=== PATIENT | female | born 1930 | race Caucasian/White ===

== ENCOUNTER → 2020-04-19 | Emergency (ER) | payer MEDICARE ==
[~2020-04-19] VITALS: Ht 157.5 cm; Wt 84.8 kg
[~2020-04-19] MED LIST: ACARBOSE25 MG PO; AMARYL4 MG PO; COUMADIN5 MG PO; COZAAR50 MG PO; IRON18 MG PO; KEFLEX250 MG PO; METFORMIN HCL500 M1 PO; SIMVASTATIN20 MG PO; VITAMIN D400 UNIT PO
--- OUTSIDE RECORDS SUMMARY | ~2020-04-19 | XMS | Encounter Summary ---
Demographics + + + | Address | [address] | | | [place] [address] | + + + | Home Phone | | + + + | Preferred Language | Unknown | + + + | Marital Status | | + + + | Judaism Affiliation | Unknown | + + + | Race | White | + + + | Ethnic Group | Not or | + + + Author + + + | Author | [facility] | | | and [place] | + + + | Organization | [facility] | | | and [place] | + + + | Address | Unknown | + + + | Phone | Unavailable | + + + Support + + +---------+ + | Name | Relationship | Address | Phone | + + +---------+ + | Siobhan Ramírez | ECON | Unknown | | + + +---------+ + | Nathanael Mckeon | ECON | Unknown | | + + +---------+ + Care Team Providers + +------+ + | Care Auto Overhauler Name | Role | Phone | + +------+ + | Andrew Carballo MD | PCP | | + +------+ + Encounter Details +--------+ + + + + | Date | Type | Department | Care Team | Description | +--------+ + + + + | 06/08/ | Abstract | [facility] | Vicente Martín Weldon, | | | 2014 | | PHYSIATRY [address] | MD [address] | | | | | [address] | [place], [place] | | | | | [place], [place] | [address] | | | | | [address] | | | | | | [phone] | | | +--------+ + + + + Social History + +-------+ +--------+------+ | Tobacco Use | Types | Packs/Day | Years | Date | | | | | Used | | + +-------+ +--------+------+ | Never Smoker | | | | | + +-------+ +--------+------+ + +---+---+---+ | Smokeless Tobacco: | | | | | Never Used | | | | + +---+---+---+ + + +---------+ + | Alcohol Use | Drinks/Week | oz/Week | Comments | + + +---------+ + | Yes | 0 Standard drinks | 0.0 | Social | | | or equivalent | | | + + +---------+ + + + + | Sex Assigned at | Date Recorded | | | | + + + | Not on file | | + + + documented as of this encounter Plan of Treatment Not on filedocumented as of this encounter Visit Diagnoses Not on filedocumented in this encounter"
--- OUTSIDE RECORDS SUMMARY | ~2020-04-19 | XMS | Clinical Summary ---
Demographics + + + | Address | [address] | | | [place] [address] | + + + | Home Phone | | + + + | Preferred Language | Unknown | + + + | Marital Status | | + + + | Quaker Affiliation | Unknown | + + + | Race | White | + + + | Ethnic Group | Not or | + + + Author + + + | Author | [facility] | | | and [place] | + + + | Organization | [facility] | | | and [...] Team Providers + +------+ + | Care Supply Chain Generalist Name | Role | Phone | + +------+ + | Surya Hayden MD | PCP | | + +------+ + Allergies No Known Allergies Medications + + + +---------+------+------+-------+ | Medication | Sig | Dispensed | Refills | Star | End | Statu | | | | | | t | Date | s | | | | | | Date | | | + + + +---------+------+------+-------+ | glimepiride | Take 4 mg by mouth 2 | | 0 | | | Activ | | (AMARYL) 4 mg tablet | times daily. | | | | | e | + + + +---------+------+------+-------+ | lisinopril | Take 10 mg by mouth | | 0 | | | Activ | | (PRINIVIL, ZESTRIL) | Daily. | | | | | e | | 10 mg tablet | | | | | | | + + + +---------+------+------+-------+ | | Take 1 tablet by | | 0 | | | Activ | | ezetimibe-simvastati | mouth nightly. | | | | | e | | n (VYTORIN) 10-20 MG | | | | | | | | per tablet | | | | | | | + + + +---------+------+------+-------+ | acarbose (PRECOSE) | Take 25 mg by mouth | | 0 | | | Activ | | 25 MG tablet | 3 times daily (with | | | | | e | | | meals). | | | | | | + + + +---------+------+------+-------+ | Ferrous Gluconate | Take by mouth | | 0 | | | Activ | | (IRON) 240 (27 FE) | Daily. | | | | | e | | MG TABS | | | | | | | + + + +---------+------+------+-------+ | Cholecalciferol | Take 1,000 Units by | | 0 | | | Activ | | (VITAMIN D-3) 1000 | mouth Daily. | | | | | e | | units CAPS | | | | | | | + + + +---------+------+------+-------+ | | Take by mouth | | 0 | | | Activ | | O-Kpzswsdhokeq-K3-B1 | Daily. | | | | | e | | 2 (METANX PO) | | | | | | | + + + +---------+------+------+-------+ | aspirin 81 MG | Take 81 mg by mouth | | 0 | | | Activ | | tablet | Daily. | | | | | e | + + + +---------+------+------+-------+ Active Problems No known active problems Family History Patient is adopted + + +------+ + | Medical History | Relation | Name | Comments | + + +------+ + | Arthritis | Son | | | + + +------+ + | Cancer | Son | | | + + +------+ + | Heart disease | Son | | | + + +------+ + | Other (see comment) | Son | | JOINT REPLACEMENT | + + +------+ + + +------+--------+ + | Relation | Name | Status | Comments | + +------+--------+ + | Child | | Alive | | + +------+--------+ + | Child | | Alive | | + +------+--------+ + | Child | | Alive | | + +------+--------+ + | Son | | Alive | | + +------+--------+ + | Son | | | | + +------+--------+ + Social History + +-------+ +--------+------+ | [...] on file | | + + + Last Filed Vital Signs + + + + + | Vital Sign | Reading | Time Taken | Comments | + + + + + | Blood Pressure | 99/64 | 06/22/2015 3:56 PM | | | | | PST | | + + + + + | Pulse | 74 | 06/22/2015 3:56 PM | | | | | PST | | + + + + + | Temperature | - | - | | + + + + + | Respiratory Rate | 18 | 06/22/2015 3:56 PM | | | | | PST | | + + + + + | Oxygen Saturation | - | - | | + + + + + | Inhaled Oxygen | - | - | | | Concentration | | | | + + + + + | Weight | 81.6 kg (180 lb) | 06/22/2015 3:56 PM | | | | | PST | | + + + + + | Height | 159.4 cm (5' 2.75") | 06/22/2015 3:56 PM | | | | | PST | | + + + + + | Body Mass Index | 32.14 | 06/22/2015 3:56 PM | | | | | PST | | + + + + + Plan of Treatment + + +-------+ + | Health Maintenance | Due Date | Last | Comments | | | | Done | | + + +-------+ + | Vaccine: | | | | | Dtap/Tdap/Td (1 - | 9 | | | | Tdap) | | | | + + +-------+ + | Vaccine: Zoster (1 | | | | | of 2) | 0 | | | + + +-------+ + | Vaccine: | | | | | Pneumococcal 65+ (1 | 5 | | | | of 1 - PPSV23) | | | | + + +-------+ + | Vaccine: Influenza | | | | | (#1) | 0 | | | + + +-------+ + Results Not on filefrom Last 3 Months Insurance + +--------+ +--------+ +---------+--------+ | Payer | Benefi | Subscriber | Effect | Phone | Address | Type | | | t Plan | ID | dilcia | | | | | | / | | Dates | | | | | | Group | | | | | | + +--------+ +--------+ +---------+--------+ | MEDICARE | MEDICA | [id number] | | [phone] | | Medica | | | RE | | 995-Pr | 5 | | re | | | PART A | | esent | | | | | | AND B | | | | | | + +--------+ +--------+ +---------+--------+ | AARP | AARP | [id number] | | [phone] | | Indemn | | | MDCR | | 999-Pr | 0 | | ity | | | SUPPL | | esent | | | | + +--------+ +--------+ +---------+--------+ + +--------+ +--------+ + + | Guarantor Name | Accoun | Relation to | Date | Phone | Billing Address | | | t Type | Patient | of | | | | | | | | | | + +--------+ +--------+ + + | Josephine Mckeon | Person | Self [birth year] | [address] | | | al/Fam | | 1930 | [phone] | [place] | | | kimmy | | | 8 (Home) | [phone] | + +--------+ +--------+ + + | Josephine Mckeon | Person | Self [birth year] [address] | | | al/Fam | | 1930 | [phone] | [place] | | | kimmy | | | 8 (Home) | [address] | | | | | | [phone] | | | | | | | 2 (Work) | | + +--------+ +--------+ + + Advance Directives + + + + + | Type | Date Recorded | Patient | Explanation | | | | Vocational Rehab Consultant | | + + + + + | Power of | | | | | Child Life Assistant | | | | + + + + + | Advance | | | | | Directive | | | | + + + + +
--- OUTSIDE RECORDS SUMMARY | ~2020-04-19 | XMS | Encounter Summary ---
Demographics + + + | Address | [address] | | | [place] [address] | + + + | Home Phone | | + + + | Preferred Language | Unknown | + + + | Marital Status | | + + + | Mandaen Affiliation | Unknown | + + + | Race | White | + + + | Ethnic Group | Not or | + + + Author + + + | Author | [facility] | | | and [place] | + + + | Organization | [facility] | | | and [...] Team Providers + +------+ + | Care Certified Genetic Counselor Name | Role | Phone | + +------+ + | Surya Hayden MD | PCP | | + +------+ + Reason for Visit Evaluate & Treat (Routine) +--------+ + + + + + | Status | Reason | Specialty | Diagnoses / | Referred By | Referred To | | | | | Procedures | Contact | Contact | +--------+ + + + + + | Closed | Specialty | Physical | Diagnoses | Zhang, | Zhang, Martín | | | Services | Medicine and | Numbness of | Martín Weldon MD | Corazon Weldon MD [address] | | | Required | Rehabilitatio | left hand | [address] | | | | n | Left hand | [address] | [place], | | | | | weakness | [place], | [place] [address] | | | | | Procedures | [place] [address] | Phone: | | | | | DOS 06/22/15 | Phone: | [phone] | | | | | | [phone] | Fax: | | | | | | Fax: | [phone] | | | | | | [phone] | | +--------+ + + + + + Encounter Details +--------+ + + + + | Date | Type | Department | Care Team | Description | +--------+ + + + + | 06/22/ | Procedure | [facility] | Martín Zhang, | Severe carpal tunnel | | 2015 | visit | PHYSIATRY [address] | MD [address] | syndrome of left | | | | [address] | [place], [place] | wrist (Primary Dx) | | | | [place], [place] | [address] | | | | | [address] | | | | | | [phone] | | | +--------+ + + + [...] + + documented as of this encounter Last Filed Vital Signs + + + [...] | | + + + + + documented in this encounter Patient Instructions Patient Instructions Martín Zhang MD - 06/22/2015 5:02 PM PSTIt is recommended that yo u move forward with the plan to have left carpal tunnel release with Dr. Carballo. Return to the clinic as needed in the future. documented in this encounter Progress Notes Martín Zhang MD - 06/22/2015 5:02 PM PSTFormatting of this note might be different fro m the original. [facility] Physical Medicine & Rehabilitation [address] [place] [address], [address] [place] [address] Test Date: 06/22/2015 Patient Name: Josephine Mckeon : 1930 Physician: Martín Zhang MD (Jr.) MR #: [id number] Sex: Female Referring Physician: HISTORY: Josephine Mckeon had right carpal tunnel release 04/2015 with some improvement in symptoms . She has not had prior nerve conduction study. She reports similar symptoms with less inten sity in the left hand. She reports that she started having left hand numbness around 5-6 yea rs ago. She reports that her symptoms have been getting gradually worse over the years. She reports intermittent pain in the left hand. She reports that pain occurs around once per wee k when she uses her hands, such yard work. She reports that when pain occurs it is a 5 out o f 10 on a numerical pain scale. She reports that the pain lasts minutes, not hours. She repo rts that her left hand symptoms have been reduced since using a brace at night. She reports constant numbness in the left hand for the last 2-3 years. She reports that she had intermit tent numbness in the left hand prior to this. She reports that the numbness is strongest in the left first, second, and third fingers. She reports weakness in the left hand. She report s loss of forest fire lookout strength. She reports that she sometimes drops objects with her left hand. Kendrick silva reports that left hand numbness frequently wakes her from sleep at night. She reports that sometimes driving her car, makes her hand feel more numb. She denies neck pain. She reports that she was diagnosed with type II diabetes around 20+ years ago. She denies a history of thyroid disease. She denies taking any blood thinning medications such as Coumadin or hepari n. She denies having implanted electronic device such as a pacemaker. She reports numbness i n her feet. PHYSICAL EXAM: Alert and oriented, cranial nerves intact, speech normal, concentration intact, memory inta ct. There was reduced sensation to pin prick over the right second finger. There was subject dilcia decreased sensation to light touch and pin prick in the left first, second, and third fi ngers. There was reduced sensation in a stock distribution of both lower extremities. Streng th is normal 5/5 in both upper extremities with biceps, triceps, wrist dorsiflexion, and fin tex abduction bilaterally. There was 4+/5 hand forest fire lookout on the right and 4/5 on the left. Tinel' s test was positive over the median nerve at the left wrist. Phalen's test was positive on t he left (not performed on the right because of recent surgery.) Strength is normal 5/5 in francisco th lower extremities with hip flexion, knee flexion, knee extension, ankle dorsiflexion, ank le plantar flexion and EHL. Deep tendon reflexes are 2+ in both upper extremities over the b iceps, triceps, and brachioradialis bilaterally. Deep tendon reflexes are 2+ in both lower e xtremities over the patella. Achilles reflexes could not be elicited bilaterally. Gait was n ormal. There was atrophy of the thenar eminences bilaterally, worse on the right. Nerve Conduction Studies Anti Sensory Summary Table Site NR Peak (ms) Norm Peak (ms) O-P Amp (V) Norm O-P Amp Site1 Site2 Delta-0 (ms) Dist (cm) Denzel (m/s) Norm Denzel (m/s) Left Median Anti Sensory (2nd Digit) 22.9C Wrist 5.0 <3.6 8.8 >10 Wrist 2nd Digit 2.8 14.0 50 >39 Elbow NR Elbow Wrist 20.8 >48 Left Radial Anti Sensory (Base 1st Digit) 23.5C Wrist 2.5 <2.7 24.5 Wrist Base 1st Digit 1.8 10.0 56 Left Ulnar Anti Sensory (5th Digit) 23.2C Wrist 3.6 <3.7 46.2 >15.0 Wrist 5th Digit 2.3 14.0 61 >38 B Elbow 8.8 10.6 B Elbow Wrist 3.5 20.7 59 >47 A Elbow 10.9 9.8 A Elbow B Elbow 1.7 10.0 59 Motor Summary Table Site NR Onset (ms) Norm Onset (ms) O-P Amp (mV) Norm O-P Amp Site1 Site2 Delta-0 (ms) Dist (cm) Denzel (m/s) Norm Denzel (m/s) Left Median Motor (Abd Poll Brev) 23.2C Wrist 11.8 <4.2 2.0 >5 Elbow Wrist 5.5 22.5 41 >50 Elbow 17.3 1.9 Axilla Elbow 1.9 9.6 51 Axilla 19.2 1.8 Left Ulnar Motor (Abd Dig Minimi) 23.5C Wrist 3.9 <4.2 8.2 >3 B Elbow Wrist 3.0 20.7 69 >53 B Elbow 6.9 9.0 A Elbow B Elbow 1.9 10.0 53 >53 A Elbow 8.8 8.9 Comparison Summary Table Site NR Peak (ms) Norm Peak (ms) P-T Amp (V) Site1 Site2 Delta-P (ms) Norm Delta (ms) Left Median/Radial Dig I Comparison (Digit 1 - 10cm) 23.1C Median NR <2.9 Median Radial <0.4 Radial 2.9 <2.8 0.4 Left Median/Ulnar Dig IV Comparison (Digit 4 - 14cm) 22.8C Median Wr 4.3 <3.3 8.4 Median Wr Ulnar Wr 0.9 <0.4 Ulnar Wr 3.4 <3.3 10.6 Left Median/Ulnar Palm Comparison (Wrist - 8cm) 23.4C Median Palm 3.3 <2.5 4.8 Median Palm Ulnar Palm 1.3 <0.3 Ulnar Palm 2.0 <2.5 18.2 F Wave Studies NR F-Lat (ms) Lat Norm (ms) L-R F-Lat (ms) L-R Lat Norm Left Median (Mrkrs) (Abd Poll Brev) 23.2C 41.30 <33 <2.2 Left Ulnar (Mrkrs) (Abd Dig Min) 23.6C 27.81 <36 <2.5 NCV FINDINGS: Evaluation of the Left median motor nerve showed prolonged distal onset laten cy, reduced amplitude, and decreased conduction velocity (Elbow-Wrist). The Left median sen arian nerve showed no response (Elbow), prolonged distal peak latency, and reduced amplitude. The Left median/radial (dig I) comparison nerve showed no response (Median) and prolonged distal peak latency (Radial). The Left median/ulnar (dig IV) comparison nerve showed prolon ged distal peak latency (Median Wr), prolonged distal peak latency (Ulnar Wr), and abnormal peak latency difference (Median Wr-Ulnar Wr). The Left median/ulnar (palm) comparison nerve showed prolonged distal peak latency (Median Palm) and abnormal peak latency difference (Me russel Palm-Ulnar Palm). All remaining nerves (as indicated in the following tables) were wit hin normal limits. F Wave studies indicate that the Left median F wave has prolonged latency. All remaining F Wave latencies were within normal limits. IMPRESSION: This is an abnormal study. Nerve conduction study of the left upper extremity is abnormal. Nerve conduction study of the left upper extremity demonstrates severe median neuropathy at the left wrist, consistent with carpal tunnel syndrome. There was no evidence of focal ulnar neuropathy in the left u pper extremity. There was no evidence of focal radial neuropathy in the left upper extremit y. This study does not meet the absolute diagnostic criteria for peripheral neuropathy. There was mild prolonged sensory latency of several nerve tested in the left upper extremity, whi ch is most consistent with peripheral neuropathy. Nerve conduction study and EMG cannot diagnose, nor rule out cervical spinal stenosis. If cervical spinal stenosis is a diagnostic consideration please consider cervical MRI. Needle EMG was not completed today. Nerve conduction study alone demonstrated convincing e vidence of carpal tunnel syndrome. This study cannot diagnose cervical radiculopathy. If c ervical radiculopathy is a consideration, EMG can be completed in the future. DISCUSSION: Ms. Mckeon demonstrated normal tolerance to nerve conduction study. She was able to comple te the entire study. As noted above, this study demonstrated severe left carpal tunnel synd adria. It is recommended that Ms. cMkeon have right carpal tunnel surgical release. She is schedu led for right carpal tunnel release 06/25/[address] Carballo. Ms. Mckeon was cautioned, that since she has severe carpal tunnel syndrome, it denotes some permanent damage to the nerve. We discussed that she will likely have some improvement in her symptoms after carpal tunnel release, but it also possible that symptoms may persist unc hanged. We discussed that she will likely have some symptoms that never fully resolve becau se of permanent nerve injury that is already present. We discussed that without carpal tunne l release she will likely have progressively worse symptoms over time, with increasing likel ihood of permanent nerve damaged and permanent symptoms. Approximately 10 minutes was spent face to face today with Ms. Mckeon, beyond the completio n of the nerve conduction study, over half of which was spent formulating and discussing her medical treatment plan. Thank you for allowing me to be involved in the care of your patient. If you have any quest ions or comments, please do not hesitate to call. Martín Zhang MD (.) Physical Medicine and Rehabilitation Cc: Andrew Carballo MD documented in this en counter Plan of Treatment Not on filedocumented as of this encounter Visit Diagnoses + + | Diagnosis | + + | Severe carpal tunnel syndrome of left wrist - Primary | + + documented in this encounter
--- OUTSIDE RECORDS SUMMARY | ~2020-04-19 | XMS | Encounter Summary ---
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 | Role | Phone | + +------+ + | Andrew Carballo MD | PCP | | + +------+ + Reason for Referral Evaluate & Treat (Routine) +--------+ + + [...] Medicine and | Numbness of | Martín E A, MD | E A, MD [address] | | | Required | Rehabilitatio | left hand | [address] | | | | n | Left hand | [address] | [place], | | | | | weakness | [place], | [place] [address] | | | | | Procedures | [place] [address] | Phone: | | | | | DOS 06/22/15 | Phone: | [phone] | | | | | | [phone] | Fax: | | | | | | Fax: | [phone] | | | | | | [phone] | | +--------+ + + + + + Reason for Visit + + + | Reason | Comments | + + + | Wrist Pain | New patient | + + + Evaluate & Treat (Routine) +--------+--------+ + + + + | Status | Reason | Specialty | Diagnoses / | Referred By | Referred To | | | | | Procedures | Contact | Contact | +--------+--------+ + + + + | Closed | | Physical | Diagnoses | Carballo, | Martín Zhang | | | | Medicine and | Left carpal | Andrew Toussaint, | Corazon Weldon MD [address] | | | | Rehabilitatio | tunnel | [address] | | | | n | syndrome | [address] | [place], | | | | | Weakness of | [place], | [place] [address] | | | | | left arm | [place] | Phone: | | | | | | [address] | [phone] | | | | | | Phone: | Fax: | | | | | | [phone] | [phone] | | | | | | Fax: | | | | | | | [phone] | | +--------+--------+ + + + + Encounter Details +--------+---------+ + + + | Date | Type | Department | Care Team | Description | +--------+---------+ + + + | 06/10/ | Office | [facility] | Martín Zhang, | Numbness of left | | 2014 | Visit | PHYSIATRY [address] | MD [address] | hand (Primary Dx); | | | | [address] | [place], [place] | Left hand weakness | | | | [place], [place] | [address] | | | | | [address] | | | | | | [phone] | | | +--------+---------+ + + + Social History + +-------+ [...] + + + | Blood Pressure | 108/57 | 06/10/2015 9:52 AM | | | | | PDT | | + + + + + | Pulse | 70 | 06/10/2015 9:52 AM | | | | | PDT | | + + + + + | Temperature | - | - | | + + + + + | Respiratory Rate | 12 | 06/10/2015 9:52 AM | | | | | PDT | | + + + + + | Oxygen Saturation | - | - | | + + + + + | Inhaled Oxygen | - | - | | | Concentration | | | | + + + + + | Weight | 82.1 kg (181 lb) | 06/10/2015 9:52 AM | | | | | PDT | | + + + + + | Height | 159.4 cm (5' 2.75") | 06/10/2015 9:52 AM | | | | | PDT | | + + + + + | Body Mass Index | 32.32 | 06/10/2015 9:52 AM | | | | | PDT | | + + + + + documented in this encounter Patient Instructions Patient Instructions Martín Zhang MD - 06/10/2015 10:44 AM Goldie attend your schedu led nerve conduction study and EMG appointment. Nerve conduction studies and EMG require a great deal of time to complete. If you will be unable to make your appointment please contact the clinic at least one full business day rachelle or to your appointment . Missed appoints without cancellation will only be re scheduled once. Children under the age of 13 are not permitted in the room during the nerve study. If acco mpanied by children under the age of 13, they will need an adult to supervise them, while th ey wait in the lobby. Prior to your appointment wash the skin with soap and water. This is to remove any of the natural oils on the skin which may interfere with the completion of the study. Please do not wear any lotion prior to the study as lotion may also interfere with the comp letion of the study. When attending your study please bring appropriate attire. If you are having a study of th e upper extremities please bring a short sleeve shirt to wear during the study. If you are having a study of the lower extremities please bring shorts to wear during the study. At the time of your study, please remind the physician if you are taking any blood thinning medications such as Coumadin, or heparin. At the time of your study, please remind the physician if you have an implanted electronic device such as a pacemaker. documented in this encounter Progress Notes Martín Zhang MD - 06/10/2015 10:20 AM PDTFormatting of this note might be different fro m the original. Subjective: Patient ID: Josephine Mckeon is a right hand dominant 84 y.o. female with left hand numbne ss. HPI Josephine Mckeon had right carpal tunnel release 04/2015 with some improvement in symptoms . She has not had prior nerve conduction study. She reports similar symptoms with less int ensity in the left hand. She reports that she started having left hand numbness around 5-6 years ago. She reports that her symptoms have been getting gradually worse over the years. She reports intermittent pain in the left hand. She reports that pain occurs around once p er week when she uses her hands, such yard work. She reports that when pain occurs it is a 5 out of 10 on a numerical pain scale. She reports that the pain lasts minutes, not hours. She reports that her left hand symptoms have been reduced since using a brace at night. Sh e reports constant numbness in the left hand for the last 2-3 years. She reports that she h ad intermittent numbness in the left hand prior to this. She reports that the numbness is s trongest in the left first, second, and third fingers. She reports weakness in the left hu d. She reports loss of manager poker strength. She reports that she sometimes drops objects with he r left hand. She reports that left hand numbness frequently wakes her from sleep at night. She reports that sometimes driving her car, makes her hand feel more numb. She denies neck pain. She reports that she was diagnosed with type II diabetes around 20+ years ago. She denies a history of thyroid disease. She denies taking any blood thinning medications such as Coumadin or heparin. She denies having implanted electronic device such as a pacemaker. She reports numbness in her feet. 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 aspirin 81 MG tablet Take 81 mg by mouth Daily. Cholecalciferol (VITAMIN D-3) 1000 units CAPS Take 1,000 Units by mouth Daily. ezetimibe-simvastatin (VYTORIN) 10-20 MG per tablet Take 1 tablet by mouth nightly. Ferrous Gluconate (IRON) 240 (27 FE) MG TABS Take by mouth Daily. glimepiride (AMARYL) 4 mg tablet Take 4 mg by mouth 2 times daily. O-Dhydrmkuctlh-A8-B12 (METANX PO) Take by mouth Daily. lisinopril (PRINIVIL, ZESTRIL) 10 mg tablet Take 10 mg by mouth Daily. No current facility-administered medications for this visit. No Known Allergies Review of Systems Constitutional: Negative for fever, chills and unexpected weight change. HENT: Negative for trouble swallowing. Eyes: Negative for pain. Respiratory: Negative for cough and shortness of breath. Cardiovascular: Negative for chest pain, palpitations and leg swelling. Gastrointestinal: Negative for nausea, vomiting, abdominal pain, diarrhea and constipation. Genitourinary: Negative for dysuria. Skin: Negative for rash and wound. Neurological: Positive for weakness and numbness. Hematological: Negative for adenopathy. Psychiatric/Behavioral: Negative for suicidal ideas. Objective: Physical Exam BP 108/57 mmHg | Pulse 70 | Resp 12 | Ht 1.594 m (5' 2.75") | Wt 82.101 kg (181 lb) | BMI 3 2.31 kg/m2 GEN: Alert & Oriented x 3, no acute distress HEENT: Extraocular muscles intact, pupils equal and reactive to light and accomodation, scl era clear NECK: Normal range of motion for age, no tenderness to palpation, muscle tone normal, Spur ling's test negative bilaterally HEART: Regular rate and rhythm, no murmurs, no gallops LUNGS: Clear to auscultation bilaterally, no wheezing, no crackles BACK: Symmetric, no tenderness to palpation, normal muscle tone EXT: No clubbing, cyanosis or edema in all four extremities. NEURO: Alert and oriented, cranial nerves intact, speech normal, concentration intact, sacha ry intact. There was reduced sensation to pin prick over the right second finger. There wa s subjective decreased sensation to light touch and pin prick in the left first, second, and third fingers. There was reduced sensation in a stock distribution of both lower extremiti es. Strength is normal 5/5 in both upper extremities with biceps, triceps, wrist dorsiflexi on, and finger abduction bilaterally. There was 4+/5 hand manager poker on the right and 4/5 on the left. Tinel's test was positive over the median nerve at the left wrist. Phalen's test was positive on the left (not performed on the right because of recent surgery.) Strength is n ormal 5/5 in both lower extremities with hip flexion, knee flexion, knee extension, ankle do rsiflexion, ankle plantar flexion and EHL. Deep tendon reflexes are 2+ in both upper extrem ities over the biceps, triceps, and brachioradialis bilaterally. Deep tendon reflexes are 2 + in both lower extremities over the patella. Achilles reflexes could not be elicited bilat erally. Gait was normal. There was atrophy of the thenar eminences bilaterally, worse on t he right. Assessment: 1. Numbness of left hand 2. Left hand weakness Plan: Josephine Mckeon's symptoms are most consistent with left carpal tunnel syndrome. She is at high risk for carpal tunnel syndrome because of her history of diabetes. She may also larose ve superimposed peripheral neuropathy. Differential diagnosis for her symptoms includes, bu t is not limited to: cervical radiculopathy, brachial plexopathy, pronator teres syndrome an d carpal tunnel syndrome. She will return to the clinic for nerve conduction study and EMG of the left upper extremity prior to 06/24/2015. She is scheduled for left carpal tunnel re lease surgery 06/24/2015. Today we reviewed that the nerve study will hopefully help us localize the origin of sympto ms. We discussed that if carpal tunnel syndrome is discovered, that the nerve study can hel p determine if the carpal tunnel syndrome is mild, moderate or severe. We discussed that if carpal tunnel is mild the treatments tend to be conservative such as antiinflammatories, larose nd therapy, wrist splints and sometimes steroid injection. We discussed that moderate and s evere carpal tunnel syndrome generally require surgical release. We discussed that with sev ere carpal tunnel syndrome there may be permanent damage to the nerve that does not resolve despite adequate surgical release. We discussed natural progress of carpal tunnel syndrome. We reviewed that carpal tunnel if left untreated, tends to get progressively worse over ti me. We discussed that if severe carpal tunnel syndrome is left untreated that the amount of permanent nerve damage can get worse leading to worse disability. Today we discussed how to prepare for nerve conduction study and EMG. We discussed not wea ring lotion and bringing a short sleeve shirt to wear. We discussed the process of the test , which involves small shocks to the nerves and that the study may include pin sticks, witho ut shock into the muscles. Thank you for allowing me to be involved in the care of your patient. If you have any ques tions regarding the care of your patient please don't hesitate to call. Approximately 45 minutes was spent face to face with Josephine Mckeon, over half of which was spent formulating and discussing their medical treatment plan. Martín Zhang MD (Jr.) documented in this en counter Plan of Treatment + + +--------+ + + | Name | Type | Priori | Associated Diagnoses | Order Schedule | | | | ty | | | + + +--------+ + + | Ambulatory referral | Outpatient | Routin | Numbness of left | Ordered: 06/10/2015 | | to Physical Medicine | Referral | e | hand Left hand | | | Rehab | | | weakness | | + + +--------+ + + documented as of this encounter Visit Diagnoses + + | Diagnosis | + + | Numbness of left hand - Primary | + + | Left hand weakness Muscle weakness (generalized) | + + documented in this encounter
--- NOTE | 2020-04-20 20:22 | EKG ---
[facility] [address] [facility] [place] [address] Signed Normal sinus rhythm Normal ECG When compared with ECG of 21-DEC-2016 10:18, Sinus rhythm has replaced Atrial fibrillation Vent. rate has decreased BY 39 BPM QT has lengthened Confirmed by PACO GRANADOS MD ([id number]) on 04/20/2020 8:22:05 PM Electronically Signed By: PACO GRANADOS MD 04/20/202021 PATIENT NAME: CHRIS AYERS Electrocardiogram DATE OF : [birth year] PHYSICIAN: PACO GRANADOS MD REPORT #: [id number] REPORT IS CONFIDENTIAL AND NOT TO BE RELEASED WITHOUT AUTHORIZATION
== END ==
LOC: ED 16:13
DX: N39.0 Urinary tract infection, site not specified (principal); R55 Syncope and collapse; I48.91 Unspecified atrial fibrillation; E11.9 Type 2 diabetes mellitus without complications; I10 Essential (primary) hypertension; Z79.899 Other long term (current) drug therapy; Z79.84 Long term (current) use of oral hypoglycemic drugs; Z79.01 Long term (current) use of anticoagulants
CPT/HCPCS: 71045; 80053; 81001; 84484; 85025; 85610; 93005; 93010; 96374; 99284-25; J0696; J7030